=== PATIENT | male | born 1945 | race Caucasian/White ===

== ENCOUNTER 2019-03-31 00:31 | Inpatient (IN) | payer MEDICARE, MEDICAID ==
[~2019-03-31] VITALS: Ht 182.9 cm; Wt 75.7 kg
[~2019-03-31 00:31] MED LIST: ALLO100T56 PO; BUDE0.5A6 PO; GEMF600T PO; HYDR-3974 PO; LACT1CAP39 PO; LOSA50TA3 PO; MAG-55 PO; MAGN400O6 PO; MULT1CAP34 PO; OLAN20TA3 PO
--- NOTE | 2019-03-31 00:31 | NUR ---
TO BED 11 BIB EMS AND [employer] FROM [facility] C/O DEPRESSION, SI WITHOUT A CHEYANNE. PT AAOX4 NO ACUTE DISTRESS NOTED, RESP EVEN AND UNLABORED. PT CALM AND COOPERATIVE AT THIS TIME. PLACE PT ON HOSPITAL GOWN, ALL BELONGINGS REMOVED FROM ROOM. ER MD AT BEDSIDE TO EVAL PT WITH ORDERS RECEIVED. WILL CARRY OUT ORDERS.
--- NOTE | 2019-03-31 00:49 | NUR ---
A AND P MECHANIC AT BEDSIDE TO ASUNCION PECK.
[2019-03-31 01:00] LABS: APPEARANCE,URINE Clear (CLEAR); BILIRUBIN,URINE SMALL (NEGATIVE); BLOOD, URINE Negative Ery/uL (NEGATIVE); COLOR,URINE Yellow (YELLOW); KETONES,URINE Negative (NEGATIVE); LEUKOCYTE ESTERASE ,URINE Negative (NEGATIVE); NITRITE, URINE Negative (NEGATIVE); PH,URINE 6.5 (5.0-8.0); PROTEIN,URINE Negative (NEGATIVE); UGLUCOSE Negative (NEGATIVE)
[2019-03-31 01:01] LABS: BASOPHILS % (AUTO) 0.4 % (0.0-2.0); EOSINOPHILS % (AUTO) 1.3 % (0.0-6.0); HEMATOCRIT 34 % (39-51); HEMOGLOBIN 11.3 g/dL (13.5-17.5); LYMPHOCYTES # (AUTO) 2.2 /CMM (0.8-4.8); LYMPHOCYTES % (AUTO) 32.9 % (20.0-44.0); MEAN CORPUSCULAR HGB CONC 34 g/dl (31.0-36.0); MEAN CORPUSCULAR VOLUME 99 fL (80-96); MONOCYTES # (AUTO) 0.6 /CMM (0.1-1.30); MONOCYTES % (AUTO) 9.4 % (2.0-12.0); NEUTROPHILS # (AUTO) 3.8 /CMM (1.8-8.9); PLATELET COUNT (AUTO) 235 /CMM (150-450); RED BLOOD CELL COUNT(AUTO) 3.41 MIL/uL (4.5-6.0); WHITE BLOOD COUNT (AUTO) 6.8 K/uL (4.3-11.0)
[2019-03-31 01:02] LABS: BACTERIA,URINE None seen /HPF (None Seen); RBC,URINE 0-2 /HPF (0-2); SQUAMOUS EPITHELIAL CELL,UR Few /HPF (None Seen); WBC,URINE 0-2 /HPF (0-3)
[2019-03-31 01:09] LABS: CALCIUM, SERUM 8.7 mg/dL (8.5-10.1); CARBON DIOXIDE 26 mmol/L (21-32); CHLORIDE 105 mmol/L (98-107); CREATININE 0.9 mg/dL (0.6-1.3); GLUCOSE 116 mg/dL (74-106); POTASSIUM 3.9 mmol/L (3.5-5.1); SODIUM SERUM 143 mmol/L (136-145); UREA NITROGEN, BLOOD 30 mg/dL (7-18)
[2019-03-31 01:14] LABS: ALANINE AMINOTRANSFERASE 12 U/L (12-78); ALBUMIN 3.2 g/dL (3.4-5.0); ALCOHOL, BLOOD < 3 mg/dL (0-0); ALKALINE PHOSPHATASE 105 U/L (46-116); ASPARTATE AMINOTRANSFERASE 10 U/L (15-37); BILIRUBIN,DIRECT 0.1 mg/dL (0.0-0.2); BILIRUBIN,TOTAL 0.4 mg/dL (0.2-1.0); SALICYLATE 3.7 mg/dL (2.8-20.0); TOTAL PROTEIN, SERUM 6.8 g/dL (6.4-8.2)
[2019-03-31 01:16] LABS: ACETAMINOPHEN 0 ug/ml (10-30)
[2019-03-31] MEDS ORDERED: OLANZAPINE 5 MG TABLET PO ONE (02:00)
--- NOTE | 2019-03-31 02:01 | NUR ---
CALLED ART PAPER MACHINE BACKTENDER FOR EVALUATION. LEFT MESSAGE, WILL FOLLOW UP
[2019-03-31] MEDS ORDERED: OLANZAPINE 5 MG TABLET ONE (02:13)
--- NOTE | 2019-03-31 02:30 | NUR ---
ART CHIEF SOLUTION ARCHITECT EN ROUTE TO EVALUATE PT
--- NOTE | 2019-03-31 03:09 | NUR ---
ARNOLDO LEWIS MANAGER ANALYTICAL AT HER FOR PSYCH EVAL.
--- NOTE | 2019-03-31 04:09 | NUR ---
PT IN BED SLEEPING. NAD NOTED.
--- NOTE | 2019-03-31 07:02 | NUR ---
PT IN BED SLEEPING. EASILY ARROUSABLE
--- NOTE | 2019-03-31 09:11 | NUR ---
REPORT GIVEN STEPHANIE LYNN FOR PHONG
[2019-03-31] MEDS ORDERED: ONDA4TAB5 PO (09:45)
[2019-03-31] MEDS ORDERED: LORA0.5T PO (09:45)
[2019-03-31] MEDS ORDERED: TRAM50TA2 PO (09:45)
[2019-03-31] MEDS ORDERED: ACET-2605 PO (09:45)
[2019-03-31] MEDS ORDERED: MELA3TAB63 PO (09:45)
[2019-03-31] MEDS ORDERED: DIVA-76 PO (09:45)
[2019-03-31] MEDS ORDERED: TAMS-12 PO (09:45)
[2019-03-31] MEDS ORDERED: ESCI5TAB PO (09:45)
[2019-03-31] MEDS ORDERED: CYAN-51 PO (09:45)
[2019-03-31] MEDS ORDERED: BENZ0.5T43 PO (09:45)
[2019-03-31] MEDS ORDERED: LIDO5CRE18 TP (09:45)
[2019-03-31] MEDS ORDERED: FLUT1AER3 IH (09:45)
[2019-03-31] MEDS ORDERED: SODI126M BNOSTRILS (09:45)
[2019-03-31] MEDS ORDERED: IBUP-1955 PO (09:45)
[2019-03-31] MEDS ORDERED: BENA20TA9 PO (09:45)
[2019-03-31] MEDS ORDERED: ALLO100T56 PO (09:45)
[2019-03-31] MEDS ORDERED: QUET200T PO (09:45)
[2019-03-31] MEDS ORDERED: RISP0.253 PO (09:45)
--- NOTE | 2019-03-31 09:45 | NUR ---
SHEET METAL SHOP HELPER NOTE PATIENT CAME IN VIA GURNEY FROM ER, FOR GPS OVERFLOW ADMISSION. PATIENT AMBULATORY STEADY GAIT. NO COMPLAINS OF ANY PAIN NOR SOB AT THIS TIME. NO IV LINE ESTABLISHED DUE TO GPS STATUS, PER ER NURSE, PATIENT IS DANGER TO SELF. WAS EXPRESSING DEPRESSIVE FEELINGS AT [facility] AND WAS SENT HERE IN THE ER BY THE [employer]. PATIENT IS ALERT AND ORIENTED. SKIN ASSESSMENT DONE. PATIENT CONTINENT IN URINE, ASKED FOR A URINAL. PATIENT ORIENTED TO ROOM. CALL LIGHT WITHIN REACH. BED LOCKED AND IN LOWEST POSITION. SITTER AT BEDSIDE. WILL CONTINUE TO MONITOR CLOSELY
--- NOTE | 2019-03-31 11:40 | NUR ---
RN NOTE PER CN, PATIENT GOING TO GPS FOR ADMISSION. WILL CALL SHANE HERNANDEZ FOR REPORT
[2019-03-31] MEDS ORDERED: MAGNESIUM HYDROXIDE 30 ML UDC PO PRN (13:00)
[2019-03-31] MEDS ORDERED: ACETAMINOPHEN 325 MG TABLET PO PRN (13:00)
[2019-03-31] MEDS ORDERED: MAG HYDROX/AL HYDROX/SIMETH 30 ML UDC PO PRN (13:00)
[2019-03-31] MEDS ORDERED: BLOOD SUGAR DIAGNOSTIC 1 EACH STRIP IN ONE (13:00)
--- NOTE | 2019-03-31 15:00 | NUR ---
GPS/RN-NOTES ADMITTED 73 Y.O MALE PATIENT FROM [facility] ER. PATIENT ON 5150 FOR DTS. PATIENT IS UNDER THE CARE OF DR. FIGUEROA ( PSYCHIATRIST) MADE AWARE WITH ORDERS. DR WEBSTER ( OLIVE PACKER) ALSO MADE AWARE OF THE ADMISSION AND TO RECONCILE MEDICATIONS STATED HE WILL DO IT. UPON FACE TO FACE ASSESSMENT WITH THE PATIENT , PATIENT CALM,COOPERATIVE DURING THE ADMISSION PROCESS.HOLD WAS VERIFIED WITH THE PATIENT.FULL BODY ASSESSMENT,CONTRABAND AND MRSA DONE. PATIENT DENIES SI/HI AT THIS TIME. PATIENT WAS ORIENTED IN THE UNIT AND UNIT POLICIES. ALL ADMISSION PAPERS WAS SIGN BY THE PATIENT. PATIENT'S SISTER ALINE CARREON ([phone]) MADE AWARE OF THE ADMISSION.PATIENT'S RIGHT WAS REVIEWED AND THE POCKET WAS GIVEN TO THE PATIENT.
[2019-03-31] MEDS: LORAZEPAM 0.5 MG TABLET PO PRN (15:34)
--- NOTE | 2019-03-31 15:36 | NUR ---
RN NOTE: PATIENT C/O FEELING ANXIOUS. ADMINISTERED PRN ATIVAN 0.5MG TAB PO.
[2019-03-31 16:00] VITALS: BP 134/64
[2019-03-31] MEDS ORDERED: ONDANSETRON 4 MG TAB.RAPDIS PO PRN (16:00)
[2019-03-31] MEDS ORDERED: MISCELLANEOUS MED 1 EA EA PO PRN (16:00)
[2019-03-31] MEDS ORDERED: [UNRECOGNIZED DRUG - OTHER] BNOSTRILS PRN (16:00)
[2019-03-31] MEDS ORDERED: SODIUM CHLORIDE BNOSTRILS PRN (16:00)
[2019-03-31] MEDS ORDERED: IBUPROFEN 600 MG TABLET PO PRN (16:00)
--- NOTE | 2019-03-31 16:17 | NUR ---
Group Note 03/31/19: SW approached patient at bedside to invite them to attend today's support group at 2 pm in the activities room regarding mindfulness. Patient was in bed in be asleep and not easily rousable. SW will invite patient to next group session.
[2019-03-31] MEDS: TAMSULOSIN 0.4 MG CAP.SR.24H PO SCH (17:07)
[2019-03-31] MEDS: TRAMADOL HCL 50 MG TABLET PO SCH (18:19)
[2019-03-31 20:26] VITALS: BP 140/70
[2019-03-31] MEDS: TEMAZEPAM 7.5 MG CAPSULE PO PRN (21:18)
[2019-03-31] MEDS ORDERED: Medication Not On Formulary EA (Melatonin 6 MG) PO SCH (22:00)
[2019-03-31] MEDS ORDERED: OLANZAPINE 10 MG TABLET PO SCH (22:00)
[2019-04-01 07:27] LABS: ALBUMIN 2.9 g/dL (3.4-5.0); BILIRUBIN,TOTAL 0.5 mg/dL (0.2-1.0); CALCIUM, SERUM 8.5 mg/dL (8.5-10.1); CREATININE 0.8 mg/dL (0.6-1.3); POTASSIUM 3.9 mmol/L (3.5-5.1); TOTAL PROTEIN, SERUM 6.1 g/dL (6.4-8.2)
[2019-04-01 07:36] LABS: CHOLESTEROL 88 mg/dL (<200); HDL CHOLESTEROL 33 mg/dL (40-60); LDL 41 mg/dL (0-99); TRIGLYCERIDES 119 mg/dL (30-150)
[2019-04-01 08:00] VITALS: BP 139/83
[2019-04-01] MEDS: NICOTINE PATCH (14MG) 14 MG PATCH.TD24 TD SCH (08:20)
[2019-04-01] MEDS: BENAZEPRIL HCL 20 MG TABLET PO SCH (08:21)
[2019-04-01] MEDS: DIVALPROEX SODIUM 125 MG CAP.SPRINK PO SCH ×2 (08:21→17:22)
[2019-04-01] MEDS: CYANOCOBALAMIN 500 MCG TABLET PO SCH (08:21)
[2019-04-01] MEDS: ALLOPURINOL 100 MG TABLET PO SCH (08:21)
[2019-04-01] MEDS: TRAMADOL HCL 50 MG TABLET PO SCH ×3 (08:22→17:21)
[2019-04-01] MEDS: FLUTICASONE/VILANTEROL 1 EACH BLST.W.DEV IH SCH (08:23)
--- NOTE | 2019-04-01 09:59 | NUR ---
SW contacted [facility] Address: [address] [place] [address] and spoke with anna Youssef coordinator who stated once pt is stable he will be returning to their facility.
--- NOTE | 2019-04-01 11:40 | NUR ---
FAMILY MEETING: ELIAZAR met with pt and pts sister Ev [phone] at bedside. Per sister she wishes for pt to be discharged to a different SNF as she states pt is easily influenced by others at [facility]. Sister mentioned that pt lives in their assisted living and has access to leave whenever he wishes and states that pt often goes and hangs out with the homeless people who loiter near the facility and does drugs such as Methamphetamine and Cannabis with them. Pt confirmed that he smokes marijuana and pts UDS came back positive for cannabis. ELIAZAR informed her that she needed to consult with Psychiatrist as pt currently is on an Assisted Living Waiver and does not know if his waiver will be jeopardized if pt goes to a different SNF outside of [facility]. Sister understood and stated she would attempt to call the Assisted Living waiver program and inquire and will also speak to administration at [facility].
--- NOTE | 2019-04-01 13:11 | NUR ---
INITIAL DISCHARGE PLAN: Per sister Ev [phone] she wishes for pt to be discharged to a different SNF. However, pt is on an assisted living waiver at [facility] Address: [address] [place] [address] and is able to return once stable for discharge. ELIAZAR will help form a safe and proper discharge in collaboration with .
--- NOTE | 2019-04-01 15:13 | NUR ---
GROUP NOTE: SW encouraged pt to attend group on this present day to discuss "impaired reality-testing." Pt stated that he was cold and wanted to remain in bed where he was warm. SW provided intervention regarding pts symptoms of depression and suicidal ideation, pt minimized his suicidal ideation and attempt stating that he never attempted to walk into traffic and that the facility "had it all wrong." Pt also demonstrated symptoms of confusion as he did not remember meeting with SW and his sister earlier this morning. Pt acknowledged that he was feeling depressed and that he did not know why.
[2019-04-01 15:57] VITALS: BP 156/88
[2019-04-01 15:58] VITALS: BP 110/68
[2019-04-01 16:00] VITALS: BP 110/68
[2019-04-01] MEDS: LORAZEPAM 0.5 MG TABLET PO PRN (16:36)
--- NOTE | 2019-04-01 16:38 | NUR ---
GPS/RN-NOTES NOTED PATIENT WITH SUDDEN SCREAMING AND YELLING IN THE HALLWAY,RESPONDING TO INTERNAL STIMULI. STATED" PEOPLE ARE TALKING BAD ABOUT ME, CALLING ME NAMES". REDIRECTED AND REORIENTED PATIENT. OFFERED ATIVAN AND AGREED. ATIVAN 0.5MG P.O GIVEN PRN ORDER. WILL CONT. MONITORING FOR SAFETY AND BEHAVIOR.
[2019-04-01] MEDS: TAMSULOSIN 0.4 MG CAP.SR.24H PO SCH (17:22)
--- NOTE | 2019-04-01 17:40 | NUR ---
GPS/RN-NOTES PATIENT LAYING IN BED CALM,NO ACUTE DISTRESS NOTED.
--- NOTE | 2019-04-01 18:41 | NUR ---
PT. ALMOST TO ATTACK THE STAFF IN THE HALLWAY. PT. WAS AGGRESSIVE, ANGRY, SCREAMING AND PARANOID THINKING THAT STAFF ARE TALKING ABOUT HIM. PT. IS TEARFUL AND WANTING TO BE DISCHARGE. PT. REDIRECTED TO HIS ROOM AND NOTIFIED DR. FIGUEROA WITH AN ORDER OF ZYPREXA 10 MG IM AND TO HOLD HS MED.
--- NOTE | 2019-04-01 18:52 | NUR ---
GPS/RN-NOTES NOTED PATIENT PUSHING THE WOW (COMPUTER ) TO THE MRI TECH STAFF IN THE HALLWAY. PATIENT SCREAMING AND YELLING " LET ME OUT THIS PLACE". REDIRECTED PATIENT, DR. FIGUEROA WAS MADE AWARE BY THE CHARGE NURSE WITH ORDERS. Addendum: 04/01/19 at 1906 by DAVID SHEETS RN IN ADDITION TO MY NOTES ABOVE. DR. FIGUEROA T.O ORDER TO HOLD HS ZYPREXA DOSE. WILL ENDORSE TO INCOMING NURSE TO CONTINUE MONITORING FOR SAFETY AND BEHAVIOR.
[2019-04-01] MEDS ORDERED: OLANZAPINE 10 MG VIAL IM ONE (19:00)
[2019-04-01 19:46] VITALS: BP 126/63
[2019-04-01] MEDS ORDERED: OLANZAPINE 10 MG TABLET PO SCH (22:00)
[2019-04-01] MEDS: TEMAZEPAM 7.5 MG CAPSULE PO PRN (22:11)
--- NOTE | 2019-04-02 08:52 | NUR ---
DR. FIGUEROA CALLED AND GAVE AN ORDER ABOUT ZYPREXA PO.
[2019-04-02] MEDS: BENAZEPRIL HCL 20 MG TABLET PO SCH (09:00)
[2019-04-02] MEDS: TRAMADOL HCL 50 MG TABLET PO SCH ×3 (09:00→16:34)
[2019-04-02] MEDS: ALLOPURINOL 100 MG TABLET PO SCH (09:01)
[2019-04-02] MEDS: DIVALPROEX SODIUM 125 MG CAP.SPRINK PO SCH ×2 (09:01→16:33)
[2019-04-02] MEDS: CYANOCOBALAMIN 500 MCG TABLET PO SCH (09:01)
[2019-04-02] MEDS: NICOTINE PATCH (14MG) 14 MG PATCH.TD24 TD SCH (09:03)
[2019-04-02] MEDS: OLANZAPINE 5 MG TABLET PO SCH ×2 (09:03→12:20)
[2019-04-02] MEDS: FLUTICASONE/VILANTEROL 1 EACH BLST.W.DEV IH SCH (09:08)
[2019-04-02] MEDS: LORAZEPAM 0.5 MG TABLET PO PRN (10:49)
--- NOTE | 2019-04-02 10:50 | NUR ---
GPS/RN-NOTES NOTED PATIENT VERY ANXIOUS,ANGRY ,PARANOID STATING "PEOPLE ARE PICKING ON ON ME,THEY ARE CALLING ME NAMES". ATIVAN 1MG P.O GIVEN PRN ORDER. WILL CONT. MONITORING FOR SAFETY AND BEHAVIOR.
--- NOTE | 2019-04-02 11:45 | NUR ---
GPS/RN-NOTES PATIENT IN THE DAY ROOM WATCHING TV,CALM NO ACUTE DISTRESS NOTED.
[2019-04-02] MEDS ORDERED: FIXODENT 1 EA TUBE MM PRN (13:30)
[2019-04-02 16:00] VITALS: BP 118/57
[2019-04-02] MEDS: TAMSULOSIN 0.4 MG CAP.SR.24H PO SCH (18:07)
--- NOTE | 2019-04-02 19:30 | NUR ---
GPS RN NOTE, RECEIVED PATIENT AWAKE AND IN BED, NO S/S OR COMPLAINTS OF PAIN AT THIS TIME. PATIENT IS DISPLAYING NO S/S OF APPARENT DISTRESS AT THIS TIME. PATIENT BREATHING IS UNLABORED WITH EQUAL RISE AND FALL OF THE CHEST. PATIENT IS ALERT AND ORIENTED X 1-2 ON ROOM AIR WITH A SPO2 98 %. PATIENT IS COMPLIANT WITH MEDICATION, DISORGANIZED, DEPRESSED, ANXIOUS AT TIMES, AND COOPERATIVE. PATIENT DENIES SUICIDE IDEATIONS AND HOMICIDAL IDEATIONS AT THIS TIME. PATIENT ASSISTED WITH TURNING AND REPOSITIONING Q2 HR AND PRN FOR COMFORT AND CIRCULATION. PATIENT HAS NO NEEDS AT THIS TIME. PATIENT EDUCATED ON THE USE OF THE CALL LOBO. PATIENT BED SIDE RAILS UP X 2 FOR SAFETY, BED IS LOCKED AND LOW. WILL CONTINUE TO MONITOR Q15 MIN WITH THE HELP OF STAFF TO MAINTAIN SAFETY.
[2019-04-02 19:44] VITALS: BP 128/83
[2019-04-02] MEDS: OLANZAPINE 10 MG TABLET PO SCH (20:38)
[2019-04-03] MEDS: TEMAZEPAM 7.5 MG CAPSULE PO PRN (00:10)
--- NOTE | 2019-04-03 00:10 | NUR ---
GPS RN NOTE, PATIENT HAS A COMPLAINT OF NOT BEING ABLE TO SLEEP AND IS REQUESTING RESTORIL AT THIS TIME. PATIENT VITAL SIGNS ARE STABLE. GAVE RESTORIL 7.5MG PO HS ORDERED. WILL REASSESS FOR INSOMNIA AND I WILL CONTINUE TO MONITOR THIS PATIENT.
[2019-04-03 08:00] VITALS: BP 115/52
[2019-04-03] MEDS: ALLOPURINOL 100 MG TABLET PO SCH (08:41)
[2019-04-03] MEDS: CYANOCOBALAMIN 500 MCG TABLET PO SCH (08:41)
[2019-04-03] MEDS: FLUTICASONE/VILANTEROL 1 EACH BLST.W.DEV IH SCH (08:41)
[2019-04-03] MEDS: OLANZAPINE 5 MG TABLET PO SCH ×2 (08:41→12:25)
[2019-04-03] MEDS: TRAMADOL HCL 50 MG TABLET PO SCH ×3 (08:42→16:00)
[2019-04-03] MEDS: BENAZEPRIL HCL 20 MG TABLET PO SCH (08:42)
[2019-04-03] MEDS: DIVALPROEX SODIUM 125 MG CAP.SPRINK PO SCH ×2 (08:42→16:00)
[2019-04-03] MEDS: NICOTINE PATCH (14MG) 14 MG PATCH.TD24 TD SCH (08:43)
[2019-04-03 15:54] VITALS: BP 144/66
[2019-04-03] MEDS: TAMSULOSIN 0.4 MG CAP.SR.24H PO SCH (17:03)
[2019-04-03 19:37] VITALS: BP 108/57
[2019-04-03] MEDS: OLANZAPINE 10 MG TABLET PO SCH (20:25)
--- NOTE | 2019-04-03 20:30 | NUR ---
Patient is depressed with sad facial expressions. Somewhat isolated to self. However, interacted well during assessment. Denies SI/AVH. Compliant with medication. Will continue to monitor behavior and medication effectiveness.
[2019-04-04 08:00] VITALS: BP 103/58
[2019-04-04] MEDS: NICOTINE PATCH (14MG) 14 MG PATCH.TD24 TD SCH (08:48)
[2019-04-04] MEDS: FLUTICASONE/VILANTEROL 1 EACH BLST.W.DEV IH SCH (08:49)
[2019-04-04] MEDS: OLANZAPINE 5 MG TABLET PO SCH ×2 (08:50→12:29)
[2019-04-04] MEDS: TRAMADOL HCL 50 MG TABLET PO SCH ×3 (08:50→17:05)
[2019-04-04] MEDS: CYANOCOBALAMIN 500 MCG TABLET PO SCH (08:50)
[2019-04-04] MEDS: BENAZEPRIL HCL 20 MG TABLET PO SCH (08:51)
[2019-04-04] MEDS: DIVALPROEX SODIUM 125 MG CAP.SPRINK PO SCH ×3 (08:52→17:04)
[2019-04-04] MEDS: ALLOPURINOL 100 MG TABLET PO SCH (08:52)
[2019-04-04 16:00] VITALS: BP 144/82
[2019-04-04] MEDS: TAMSULOSIN 0.4 MG CAP.SR.24H PO SCH (18:04)
[2019-04-04 19:59] VITALS: BP 153/66
[2019-04-04] MEDS: OLANZAPINE 10 MG TABLET PO SCH (20:35)
[2019-04-04] MEDS: TEMAZEPAM 7.5 MG CAPSULE PO PRN (21:53)
[2019-04-05 08:00] VITALS: BP 151/60
--- NOTE | 2019-04-05 08:26 | NUR ---
ELIAZAR contacted pts sister Ev [phone] and left a voicemail informing her pt will be discharged back to [facility] tomorrow Thursday04/06/19.
[2019-04-05] MEDS: OLANZAPINE 5 MG TABLET PO SCH ×2 (08:35→12:21)
[2019-04-05] MEDS: FLUTICASONE/VILANTEROL 1 EACH BLST.W.DEV IH SCH (08:35)
[2019-04-05] MEDS: NICOTINE PATCH (14MG) 14 MG PATCH.TD24 TD SCH (08:35)
[2019-04-05] MEDS: ALLOPURINOL 100 MG TABLET PO SCH (08:35)
[2019-04-05] MEDS: BENAZEPRIL HCL 20 MG TABLET PO SCH (08:35)
[2019-04-05] MEDS: TRAMADOL HCL 50 MG TABLET PO SCH ×3 (08:37→17:03)
[2019-04-05] MEDS: DIVALPROEX SODIUM 125 MG CAP.SPRINK PO SCH ×3 (08:38→17:08)
[2019-04-05] MEDS: CYANOCOBALAMIN 500 MCG TABLET PO SCH (09:39)
[2019-04-05 16:00] VITALS: BP 136/62
[2019-04-05] MEDS: TAMSULOSIN 0.4 MG CAP.SR.24H PO SCH (17:03)
[2019-04-05 20:12] VITALS: BP 144/67
[2019-04-05] MEDS: OLANZAPINE 10 MG TABLET PO SCH (20:51)
[2019-04-05] MEDS: TEMAZEPAM 7.5 MG CAPSULE PO PRN (21:25)
[2019-04-06] MEDS: LORAZEPAM 0.5 MG TABLET PO PRN ×2 (00:38→12:09)
[2019-04-06 07:03] LABS: BASOPHILS % (AUTO) 0.4 % (0.0-2.0); EOSINOPHILS % (AUTO) 1.8 % (0.0-6.0); HEMATOCRIT 35 % (39-51); HEMOGLOBIN 11.6 g/dL (13.5-17.5); LYMPHOCYTES # (AUTO) 2.6 /CMM (0.8-4.8); MEAN CORPUSCULAR HGB CONC 33 g/dl (31.0-36.0); MEAN CORPUSCULAR VOLUME 100 fL (80-96); MONOCYTES # (AUTO) 0.7 /CMM (0.1-1.30); MONOCYTES % (AUTO) 9.7 % (2.0-12.0); NEUTROPHILS # (AUTO) 3.5 /CMM (1.8-8.9); NEUTROPHILS % (AUTO) 51.1 % (43.0-81.0); PLATELET COUNT (AUTO) 249 /CMM (150-450); RED BLOOD CELL COUNT(AUTO) 3.48 MIL/uL (4.5-6.0); WHITE BLOOD COUNT (AUTO) 6.9 K/uL (4.3-11.0)
[2019-04-06 08:00] VITALS: BP 146/58
[2019-04-06 08:12] LABS: ALBUMIN 3.2 g/dL (3.4-5.0); BILIRUBIN,TOTAL 0.6 mg/dL (0.2-1.0); CREATININE 0.9 mg/dL (0.6-1.3); POTASSIUM 4.7 mmol/L (3.5-5.1)
[2019-04-06 08:54] VITALS: BP 146/58
[2019-04-06] MEDS: TRAMADOL HCL 50 MG TABLET PO SCH ×2 (08:54→12:10)
[2019-04-06] MEDS: NICOTINE PATCH (14MG) 14 MG PATCH.TD24 TD SCH (08:54)
[2019-04-06] MEDS: ALLOPURINOL 100 MG TABLET PO SCH (08:54)
[2019-04-06] MEDS: BENAZEPRIL HCL 20 MG TABLET PO SCH (08:54)
[2019-04-06] MEDS: OLANZAPINE 5 MG TABLET PO SCH ×2 (08:54→12:10)
[2019-04-06] MEDS: CYANOCOBALAMIN 500 MCG TABLET PO SCH (08:54)
[2019-04-06] MEDS: DIVALPROEX SODIUM 125 MG CAP.SPRINK PO SCH ×2 (08:55→12:09)
[2019-04-06] MEDS: FLUTICASONE/VILANTEROL 1 EACH BLST.W.DEV IH SCH (08:57)
--- NOTE | 2019-04-06 10:53 | NUR ---
DISCHARGE NOTE: Pt will be discharged at 12:30pm via [facility] to [facility] ([facility]) Address: [address] [place] [address] Room 52B. Pts sister Ev [phone] has been notified. Pts mood is euthymic with congruent affect. Pt denied visual/auditory hallucinations and denied suicidal/homicidal ideation. Pt will address his substance use with Psychiatrist: Dr. Jerson Griffin [address] [address] [phone] and will be under the care of Second Mate: Dr. Mayela May Address: [address] [place] [address] Phone: . For smoking cessation, patient was referred to the [employer] and [employer] [id number]. Pt will also participate in a telephone meeting with [employer] [phone] on April at 8:00am. The multidisciplinary exit care form was done, printed, signed, and given to the patient.
--- NOTE | 2019-04-06 12:12 | NUR ---
RN NOTE: PATIENT C/O FEELING ANXIOUS. PRN ATIVAN GIVEN.
--- NOTE | 2019-04-06 16:11 | NUR ---
LINK TRAINER TEACHER NOTE: PATIENT IS A 73 Y/O MALE DISCHARGED TO [facility] ([facility]) [address] [place] [address] [facility] [place] [address] . PATIENTS SISTER ALINE CARREON MADE AWARE OF DISCHARGE.PATIENT IS IN STABLE CONDITION. VSS. NO ACUTE DISTRESS NOTED. NO COMPLAINTS. COMPLIANT WITH MEDICATION MANAGEMENT. COOPERATIVE WITH PLAN OF CARE. PSYCHIATRIC TREATMENT PLANS MET. MEDICAL TREATMENT PLANS DEFERRED FOR CONTINUAL MONITORING. DENIES SI/HI VAH AT THE TIME OF DISCHARGE. WOUND PICTURES TAKEN AND DOCUMENTED IN CHART. EDUCATED PATIENT ABOUT AFTERCARE WITH COPY PROVIDED. RETURNED PERSONAL BELONGINGS TO PATIENT. MEDICATIONS RECONCILED WITH DR. MOSQUEDA AND DR. FIGUEROA ALONG WITH PSYCHIATRIC DISCHARGE ORDERS. DISCHARGE PAPERWORK SIGNED. FOR FOLLOW UP WITH PSYCHIATRIST DR. CANDELARIO [place] [facility] [address]. [facility]. [address] [place] [address] [phone] RITA ELLIS [address] [facility] [place] [address] WITHIN 1 WEEK. PATIENT LEFT THE [facility] GPS AT 1327 VIA [employer].
--- NOTE | 2019-04-20 09:33 | NUR ---
15 DAY SUBSTANCE ABUSE: Pt is excluded due to D/C to SNF.
== END 2019-04-06 13:27 | DRG 885 ==
LOC: ER 00:31 → GPSOV1 09:40 → GPS 12:13
PROVIDERS: ADMIT Psychiatry & Neurology Psychosomatic Medicine; ATTEND Family Medicine
DX: F20.9 Schizophrenia, unspecified (principal); R45.851 Suicidal ideations; F29 Unspecified psychosis not due to a substance or known physiological condition; E78.5 Hyperlipidemia, unspecified; F32.9 Major depressive disorder, single episode, unspecified; J44.9 Chronic obstructive pulmonary disease, unspecified; I10 Essential (primary) hypertension; Z86.12 Personal history of poliomyelitis; R27.0 Ataxia, unspecified; F12.10 Cannabis abuse, uncomplicated; G62.9 Polyneuropathy, unspecified; R79.89 Other specified abnormal findings of blood chemistry; M10.9 Gout, unspecified
CPT/HCPCS: 36415; 80048-TC; 80053-TC; 80061-TC; 80076-TC; 80164-TC; 80305; 81000-TC; 82962-TC; 85025-TC; 87081-TC; G0480; J3490

== ENCOUNTER 2021-06-20 20:10 | Emergency (ER) | payer MEDICARE, OTHER ==
[~2021-06-20] VITALS: Ht 182.9 cm; Wt 86.2 kg
[~2021-06-20 20:10] MED LIST changes: +ACET-2605 PO; +BENA20TA9 PO; +BENZ0.5T43 PO; -BUDE0.5A6 PO; +CYAN-51 PO; +DIVA-76 PO; +ESCI5TAB PO; +FLUT1AER3 IH; -GEMF600T PO; -HYDR-3974 PO; +IBUP-1955 PO; -LACT1CAP39 PO; +LIDO5CRE18 TP; +LORA0.5T PO; -LOSA50TA3 PO; -MAG-55 PO; -MAGN400O6 PO; +MELA3TAB41 PO; -MULT1CAP34 PO; -OLAN20TA3 PO; +ONDA4TAB5 PO; +QUET200T PO; +RISP0.253 PO; +SODI126M BNOSTRILS; +TAMS-12 PO; +TRAM50TA2 PO
--- NOTE | 2021-06-20 20:20 | NUR ---
BIBRA FROM THE STREET TO ER BED 14. AAOX4. NOT IN RESP DISTRESS, BREATHING EVEN AND UNLABORED. ANYGT IN FOR L SIDE CP NON RADIATING PRESSURE. DENIES AND NVD. PT RECEIVED 1 SPRAY NITRO AND FULL DOSE ASA ON FIELD BY PARAMEDICS. WAS AT THE BEDSIDE FOR EVAL. EKG DONE. PT ON MONITOR.
[2021-06-20 21:51] LABS: BASOPHILS % (AUTO) 0.4 % (0.0-2.0); EOSINOPHILS % (AUTO) 1.1 % (0.0-6.0); HEMATOCRIT 37 % (39-51); HEMOGLOBIN 12.4 g/dL (13.5-17.5); LYMPHOCYTES # (AUTO) 1.7 K/uL (0.8-4.8); LYMPHOCYTES % (AUTO) 21.7 % (20.0-44.0); MEAN CORPUSCULAR HGB CONC 34 g/dl (31.0-36.0); MEAN CORPUSCULAR VOLUME 97 fL (80-96); MONOCYTES # (AUTO) 0.6 K/uL (0.1-1.30); MONOCYTES % (AUTO) 8.5 % (2.0-12.0); NEUTROPHILS # (AUTO) 5.2 K/uL (1.8-8.9); NEUTROPHILS % (AUTO) 68.3 % (43.0-81.0); PLATELET COUNT (AUTO) 252 K/uL (150-450); RED BLOOD CELL COUNT(AUTO) 3.82 MIL/uL (4.5-6.0); WHITE BLOOD COUNT (AUTO) 7.7 K/uL (4.3-11.0)
[2021-06-20 22:00] LABS: CALCIUM, SERUM 8.1 mg/dL (8.5-10.1); CARBON DIOXIDE 30 mmol/L (21-32); CHLORIDE 101 mmol/L (98-107); CREATININE 1.2 mg/dL (0.6-1.3); GLUCOSE 163 mg/dL (74-106); POTASSIUM 3.8 mmol/L (3.5-5.1); SODIUM SERUM 138 mmol/L (136-145); UREA NITROGEN, BLOOD 21 mg/dL (7-18)
--- NOTE | 2021-06-20 22:22 | NUR ---
[facility] ETA 5974
--- NOTE | 2021-06-20 23:33 | NUR ---
MALORIE AT [facility] NOTIFIED THAT PT IS COMING BACK AND MEDICALLY CLEARED.
--- NOTE | 2021-06-20 23:34 | NUR ---
[facility] AT BEDSIDE FOR PT TRANSPORT BACK TO HIS FACILITY. REPORT GIVEN TO EMT. PT IS IN STABLE CONDITION FOR TRANSPORT. PT AMBULATED TO [facility]
[2021-06-20 23:39] VITALS: BP 136/78
== END 2021-06-20 23:40 | disposition home or self-care (01) ==
LOC: ER 20:13
DX: R07.89 Other chest pain (principal); I10 Essential (primary) hypertension; J45.909 Unspecified asthma, uncomplicated; E78.00 Pure hypercholesterolemia, unspecified; Z79.899 Other long term (current) drug therapy
CPT/HCPCS: 36415; 71045-TC; 80048-TC; 84484-TC; 85025-TC

== ENCOUNTER 2021-10-22 01:13 | Emergency (ER) | payer MEDICARE, OTHER ==
[~2021-10-22] VITALS: Ht 172.7 cm; Wt 87.1 kg
--- NOTE | 2021-10-22 01:25 | NUR ---
PT BIBRA88 PT FOUND AT [facility]. PT A/OX2/3 WITH CONFUSION. TOLERATING R/A WELL WITH NO SOB.
--- NOTE | 2021-10-22 01:46 | NUR ---
PT RENETTA 88 FROM [facility], PT FOUND OUTSIDE IN N OUT; SPEAKING WITH SECURITY, PT THEN COMPLAINING OF BODY; PT A/OX3; NO SOB NOTED; TOLERATING ROOM AIR WELL, SATTING 98%; VSS; KATARZYNA AT BEDSIDE WITH PT; SNF CALLED, PER SNF, THEY DO NOT HAVE THIS PT. CALLED ALINE (SISTER), DID NOT ANSWER; WILL TRY ANOTHER FAMILY MEMBER. PT HOOKED ON MONITOR AND POX. Addendum: 10/22/21 at 0152 by ALFONZO A/OX2-3 WITH PERIODS OF CONFUSION; BROUGHT TO ER BED 14
--- NOTE | 2021-10-22 05:42 | NUR ---
ATTEMPTED TO CONTACT FAMILY MEMBERS MULTIPLE TIMES THROUGHOUT SHIFT, STILL NO ANSWER; VOICEMAIL LEFT FOR ALINE (SISTER) [phone]
--- NOTE | 2021-10-22 06:09 | NUR ---
SISTER CALLED BACK, REPORTED PT IS FROM [facility] ON [address], [place]. SISTER PROVIDED NUMBER; DR. COLÓN CALLING FACILITY
--- NOTE | 2021-10-22 06:15 | NUR ---
FACILITY DID NOT ANSWER, DR. COLÓN LEFT VOICEMAIL WITH FACILITY TO CALL BACK REGARDING PT
--- NOTE | 2021-10-22 09:39 | NUR ---
report given to emt for pt transfer back to [facility].
[2021-10-22 09:45] VITALS: BP 142/86
== END 2021-10-22 09:46 | disposition home or self-care (01) ==
LOC: ER 01:16
DX: Z71.1 Person with feared health complaint in whom no diagnosis is made (principal); I10 Essential (primary) hypertension; J44.9 Chronic obstructive pulmonary disease, unspecified; F20.9 Schizophrenia, unspecified; E78.00 Pure hypercholesterolemia, unspecified; Z86.12 Personal history of poliomyelitis; Z86.69 Personal history of other diseases of the nervous system and sense organs; Z86.79 Personal history of other diseases of the circulatory system; Z79.899 Other long term (current) drug therapy

== ENCOUNTER 2021-11-05 08:57 | Emergency (ER) | payer MEDICARE, OTHER ==
[~2021-11-05] VITALS: Ht 172.7 cm; Wt 86.6 kg
[2021-11-05 09:44] LABS: BASOPHILS % (AUTO) 0.8 % (0.0-2.0); EOSINOPHILS % (AUTO) 1.6 % (0.0-6.0); HEMATOCRIT 32 % (39-51); HEMOGLOBIN 10.8 g/dL (13.5-17.5); LYMPHOCYTES # (AUTO) 1.4 K/uL (0.8-4.8); LYMPHOCYTES % (AUTO) 25.1 % (20.0-44.0); MEAN CORPUSCULAR HGB CONC 34 g/dl (31.0-36.0); MEAN CORPUSCULAR VOLUME 96 fL (80-96); MONOCYTES # (AUTO) 0.6 K/uL (0.1-1.30); MONOCYTES % (AUTO) 10.9 % (2.0-12.0); NEUTROPHILS # (AUTO) 3.4 K/uL (1.8-8.9); NEUTROPHILS % (AUTO) 61.6 % (43.0-81.0); PLATELET COUNT (AUTO) 239 K/uL (150-450); RED BLOOD CELL COUNT(AUTO) 3.33 MIL/uL (4.5-6.0); WHITE BLOOD COUNT (AUTO) 5.5 K/uL (4.3-11.0)
[2021-11-05 09:47] LABS: CALCIUM, SERUM 8.3 mg/dL (8.5-10.1); CARBON DIOXIDE 30 mmol/L (21-32); CHLORIDE 103 mmol/L (98-107); GLUCOSE 91 mg/dL (74-106); POTASSIUM 4.4 mmol/L (3.5-5.1); SODIUM SERUM 138 mmol/L (136-145); UREA NITROGEN, BLOOD 14 mg/dL (7-18)
[2021-11-05 09:53] LABS: ALANINE AMINOTRANSFERASE 15 U/L (12-78); ALBUMIN 2.7 g/dL (3.4-5.0); ALCOHOL, BLOOD < 3 mg/dL (0-0); ALKALINE PHOSPHATASE 106 U/L (46-116); ASPARTATE AMINOTRANSFERASE 11 U/L (15-37); BILIRUBIN,DIRECT 0.1 mg/dL (0.0-0.2); BILIRUBIN,TOTAL 0.4 mg/dL (0.2-1.0); TOTAL PROTEIN, SERUM 6.4 g/dL (6.4-8.2)
[2021-11-05 10:06] LABS: ACETAMINOPHEN 0 ug/ml (10-30)
[2021-11-05] MEDS ORDERED: LISI20TA31 PO (10:26)
[2021-11-05] MEDS ORDERED: PALI156D IM (10:26)
[2021-11-05] MEDS ORDERED: ARIP5TAB59 PO (10:26)
[2021-11-05] MEDS ORDERED: HALO5TAB8 PO (10:26)
[2021-11-05] MEDS ORDERED: SENN-261 PO (10:26)
[2021-11-05 11:01] LABS: BILIRUBIN,URINE NEGATIVE (NEGATIVE); COLOR,URINE YELLOW (YELLOW); LEUKOCYTE ESTERASE ,URINE NEGATIVE (NEGATIVE); NITRITE, URINE NEGATIVE (NEGATIVE); PH,URINE 7.5 (5.0-8.0); PROTEIN,URINE NEGATIVE (NEGATIVE); UGLUCOSE NEGATIVE (NEGATIVE)
[2021-11-05 13:01] VITALS: BP 133/84
== END 2021-11-05 14:38 ==
LOC: ER 09:00
DX: F20.9 Schizophrenia, unspecified (principal); F03.90 Unspecified dementia, unspecified severity, without behavioral disturbance, psychotic disturbance, mood disturbance, and anxiety; Z20.822 Contact with and (suspected) exposure to COVID-19; J44.9 Chronic obstructive pulmonary disease, unspecified; E78.5 Hyperlipidemia, unspecified; G62.9 Polyneuropathy, unspecified; Z86.12 Personal history of poliomyelitis; I10 Essential (primary) hypertension; R27.0 Ataxia, unspecified; Z79.899 Other long term (current) drug therapy
CPT/HCPCS: 36415; 80048-TC; 80076-TC; 85025-TC; C9803; G0480

== ENCOUNTER 2021-11-17 22:29 | Inpatient (IN) | payer MEDICARE, OTHER ==
[~2021-11-17] VITALS: Ht 182.9 cm; Wt 81.6 kg
[~2021-11-17 22:29] MED LIST changes: -ACET-2605 PO; +ARIP5TAB59 PO; -BENA20TA9 PO; -FLUT1AER3 IH; +HALO5TAB8 PO; -IBUP-1955 PO; -LIDO5CRE18 TP; +LISI20TA31 PO; -MELA3TAB41 PO; -ONDA4TAB5 PO; +PALI156D IM; -QUET200T PO; -RISP0.253 PO; +SENN-261 PO; -SODI126M BNOSTRILS; -TRAM50TA2 PO
--- NOTE | 2021-11-17 23:05 | NUR ---
TO ER BED 11. BIBRA 860 FOR PATIENT ELOPED FROM [facility]. PT STATES HES ANXIOUS AND IS UNABLE TO SLEEP. CONNECTED TO MONITOR. AWAITING MD ROLAND
[2021-11-17] MEDS ORDERED: OLANZAPINE 5 MG TABLET ONE (23:10)
[2021-11-17] MEDS ORDERED: OLANZAPINE 10 MG VIAL IM ONE ×2 (23:12→23:30)
--- NOTE | 2021-11-17 23:15 | NUR ---
LAB AT BEDSIDE
--- NOTE | 2021-11-17 23:24 | NUR ---
PT UNABLE TO PROVIDE URINE SAMPLE AT THIS TIME
[2021-11-17 23:30] LABS: BASOPHILS % (AUTO) 0.4 % (0.0-2.0); EOSINOPHILS % (AUTO) 0.9 % (0.0-6.0); HEMATOCRIT 36 % (39-51); HEMOGLOBIN 11.9 g/dL (13.5-17.5); LYMPHOCYTES % (AUTO) 25.4 % (20.0-44.0); MEAN CORPUSCULAR HGB CONC 33 g/dl (31.0-36.0); MEAN CORPUSCULAR VOLUME 97 fL (80-96); MONOCYTES # (AUTO) 0.7 K/uL (0.1-1.30); MONOCYTES % (AUTO) 8.5 % (2.0-12.0); NEUTROPHILS % (AUTO) 64.8 % (43.0-81.0); PLATELET COUNT (AUTO) 224 K/uL (150-450); RED BLOOD CELL COUNT(AUTO) 3.69 MIL/uL (4.5-6.0); WHITE BLOOD COUNT (AUTO) 7.7 K/uL (4.3-11.0)
[2021-11-17 23:51] LABS: CALCIUM, SERUM 8.5 mg/dL (8.5-10.1); CARBON DIOXIDE 32 mmol/L (21-32); CHLORIDE 101 mmol/L (98-107); CREATININE 1.3 mg/dL (0.6-1.3); GLUCOSE 110 mg/dL (74-106); POTASSIUM 4.7 mmol/L (3.5-5.1); SODIUM SERUM 140 mmol/L (136-145); UREA NITROGEN, BLOOD 27 mg/dL (7-18)
[2021-11-17 23:57] LABS: ALANINE AMINOTRANSFERASE 14 U/L (12-78); ALKALINE PHOSPHATASE 110 U/L (46-116); ASPARTATE AMINOTRANSFERASE 7 U/L (15-37); BILIRUBIN,DIRECT 0.2 mg/dL (0.0-0.2); BILIRUBIN,TOTAL 0.7 mg/dL (0.2-1.0)
[2021-11-17 23:58] LABS: ACETAMINOPHEN < 2 ug/ml (10-30); ALCOHOL, BLOOD < 3 mg/dL (0-0)
--- NOTE | 2021-11-18 00:01 | NUR ---
URINE SAMPLE COLLECTED
--- NOTE | 2021-11-18 00:01 | NUR ---
COVID ANTIGEN SWAB COLLECTED AND SENT TO LAB
[2021-11-18 00:30] LABS: BILIRUBIN,URINE NEGATIVE (NEGATIVE); COLOR,URINE YELLOW (YELLOW); LEUKOCYTE ESTERASE ,URINE NEGATIVE (NEGATIVE); NITRITE, URINE NEGATIVE (NEGATIVE); PROTEIN,URINE NEGATIVE (NEGATIVE); UGLUCOSE NEGATIVE (NEGATIVE); UROBILINOGEN,URINE 0.2 EU/dL (0.2)
--- NOTE | 2021-11-18 00:50 | NUR ---
CATIE PAGED FOR CRISIS EVAL.
--- NOTE | 2021-11-18 02:56 | NUR ---
GPS 211-A
--- NOTE | 2021-11-18 04:04 | NUR ---
REPORT GIVEN TO FAA RN FOR PHONG
[2021-11-18 04:20] VITALS: BP 108/61
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
[2021-11-18] MEDS ORDERED: ACETAMINOPHEN 325 MG TABLET PO PRN (05:00)
[2021-11-18] MEDS ORDERED: BLOOD SUGAR DIAGNOSTIC 1 EACH STRIP IN ONE (05:00)
[2021-11-18] MEDS ORDERED: MAGNESIUM HYDROXIDE 30 ML UDC PO PRN (05:00)
[2021-11-18] MEDS ORDERED: MAG HYDROX/AL HYDROX/SIMETH 30 ML UDC PO PRN (05:00)
[2021-11-18 05:34] VITALS: BP 108/61
--- NOTE | 2021-11-18 06:56 | NUR ---
GPS RN NOTES: PATIENT SISTER ALINE CARREON ([phone]) MADE AWARE OF PATIENT ADMISSION AT 0655.
--- NOTE | 2021-11-18 07:30 | NUR ---
PT RECEIVED RESTING COMFORTABLY IN BED. NO S/S OR C/O PAIN OR DISTRESS NOTED. SIDE RAILS UP X2. WILL CONTINUE PLAN OF CARE.
[2021-11-18 08:00] VITALS: BP 153/76
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
--- NOTE | 2021-11-18 11:35 | NUR ---
Family Contact: ELIAZAR called the pt.'s sister, Ev Wells [phone] ans left a voicemail with SW call back number. SW will remain available to speak to family and gather collateral information.
--- NOTE | 2021-11-18 11:37 | NUR ---
Initial Discharge Plan: The pt. currently comes from [facility][[id number] [facility] [address]; [phone]]. ELIAZAR called and spoke to admissions dept. who stated that the pt. can return when stable. Pt. stated that he does not want to return as they "doctors want to kill me". ELIAZAR left pt.'s sister, Ev [phone] a voicemail. ELIAZAR will continue to collaborate with psychiatrist, patient and family to complete a safe & appropriate discharge plan. Addendum: 11/18/21 at 1200 by SOHAIL PEREA Correct Address: [facility][[address] [facility] [address]; [phone]]
--- NOTE | 2021-11-18 11:43 | NUR ---
Substance Abuse Intervention: SW completed brief substance abuse intervention with pt. Pt. only admits to using Cannabis and stated he has no plan to change this habit. SW offered to refer pt. to outpatient rehab and pt. refused. SW offered pt. addiction resources and pt. refused. Pt. signed substance abuse intervention paperwork.
[2021-11-18 16:00] VITALS: BP 143/66
[2021-11-18] MEDS: TAMSULOSIN 0.4 MG CAP.SR.24H PO SCH (17:44)
[2021-11-18 20:50] VITALS: BP 131/59
[2021-11-18] MEDS: SENNOSIDES 8.6 MG TABLET PO SCH (21:31)
[2021-11-18] MEDS: OLANZAPINE 5 MG TABLET PO SCH (22:58)
[2021-11-19 07:42] LABS: ALANINE AMINOTRANSFERASE 14 U/L (12-78); ALBUMIN 2.7 g/dL (3.4-5.0); ALKALINE PHOSPHATASE 99 U/L (46-116); ASPARTATE AMINOTRANSFERASE 10 U/L (15-37); BILIRUBIN,TOTAL 0.7 mg/dL (0.2-1.0); CALCIUM, SERUM 8.5 mg/dL (8.5-10.1); CARBON DIOXIDE 30 mmol/L (21-32); CHLORIDE 104 mmol/L (98-107); CREATININE 0.9 mg/dL (0.6-1.3); GLUCOSE 96 mg/dL (74-106); POTASSIUM 4.2 mmol/L (3.5-5.1); SODIUM SERUM 139 mmol/L (136-145); TOTAL PROTEIN, SERUM 6.2 g/dL (6.4-8.2); UREA NITROGEN, BLOOD 23 mg/dL (7-18)
[2021-11-19 07:50] LABS: THYROID STIMULATING HORMONE 2.018 uIU/mL (0.358-3.74)
[2021-11-19 08:00] VITALS: BP 98/59
[2021-11-19] MEDS: CYANOCOBALAMIN 500 MCG TABLET PO SCH (08:33)
[2021-11-19] MEDS: ALLOPURINOL 100 MG TABLET PO SCH (08:33)
[2021-11-19] MEDS: LISINOPRIL (20MG) 20 MG TABLET PO SCH (08:34)
[2021-11-19] MEDS: BENZTROPINE MESYLATE (1 MG) 1 MG TABLET PO SCH (08:34)
[2021-11-19] MEDS ORDERED: BENZTROPINE MESYLATE 1 MG PO SCH (09:00)
--- NOTE | 2021-11-19 09:00 | NUR ---
RN NOTE- PT IN BED, INTERACTIVE WHEN ENGAGED, PARANOIA P[RESENT, MED COMPLIANT, ISOLATIVE, WITHDRAWN
[2021-11-19] MEDS: OLANZAPINE 5 MG TABLET PO SCH ×2 (09:18→21:00)
[2021-11-19 15:09] VITALS: BP 147/76
[2021-11-19] MEDS: TAMSULOSIN 0.4 MG CAP.SR.24H PO SCH (17:13)
--- NOTE | 2021-11-19 19:15 | NUR ---
GPS RN NOTES PATIENT IN BED RESTING COMFORTABLY. A/OX2, NO S/SX OF ACUTE DISTRESS NOTED. PATIENT REMAINS ANXIOUS, PARANOID, DELUSIONAL, DISHEVELED, UNKEMPT. NO VERBALIZATION OF THOUGHTS AND FEELINGS. SAFETY PRECAUTIONS IN PLACE. WILL CONTINUE TO MONITOR Q15MIN ROUNDS FOR SAFETY AND BEHAVIOR.
[2021-11-19 19:38] VITALS: BP 141/58
[2021-11-19] MEDS: LORAZEPAM 0.5 MG TABLET PO PRN (19:40)
[2021-11-19] MEDS: SENNOSIDES 8.6 MG TABLET PO SCH (21:00)
[2021-11-19] MEDS: TEMAZEPAM 7.5 MG CAPSULE PO PRN (23:22)
[2021-11-20 08:00] VITALS: BP 123/67
[2021-11-20] MEDS: CYANOCOBALAMIN 500 MCG TABLET PO SCH (08:26)
[2021-11-20] MEDS: LISINOPRIL (20MG) 20 MG TABLET PO SCH (08:26)
[2021-11-20] MEDS: BENZTROPINE MESYLATE (1 MG) 1 MG TABLET PO SCH (08:26)
[2021-11-20] MEDS: ALLOPURINOL 100 MG TABLET PO SCH (08:27)
[2021-11-20] MEDS: OLANZAPINE 5 MG TABLET PO SCH ×2 (10:01→20:59)
--- NOTE | 2021-11-20 10:34 | NUR ---
ELIAZAR Note: SW met with pt to discuss treatment plan and discharge plan. He stated that he does not want to go back to his facility and wants a different facility.
--- NOTE | 2021-11-20 10:35 | NUR ---
ELIAZAR Family Contact: ELIAZAR spoke with pt's sister Ev ([phone]) to gather collateral and discuss treatment/discharge plan. She reported that she is the DPOA and will bring the documents when she visits pt. SW reported that pt does not want to go back to his assisted living and wants a different placement. SW gave options and she was open to SNF. She reported she would prefer pt to go back to assisted living. ELIAZAR stated she will check with pt end of this week to see what he would prefer.
[2021-11-20 16:00] VITALS: BP 119/70
[2021-11-20] MEDS: TAMSULOSIN 0.4 MG CAP.SR.24H PO SCH (17:22)
[2021-11-20 20:00] VITALS: BP 141/60
--- NOTE | 2021-11-20 20:23 | NUR ---
RECEIVED PATIENT IN ROOM SITTING IN THE BED ALERT, ORIENTED X 2-3 DENIES ANY PAIN OR DISCOMFORT AT THIS TIME BREATHING EVEN UNLABORED VITAL SIGN STABLE CONFUSE AT TIME ABLE TO RE- DIRECT COMPLY WITH MEDICATIONS. CALL LIGHT WITHIN EASY REACHED. WILL CONTINUES TO MAKE ROUND EVERY 15 MINS FOR PATIENT SAFETY AND FALL.
[2021-11-20] MEDS: LORAZEPAM 0.5 MG TABLET PO PRN (20:58)
[2021-11-20] MEDS: SENNOSIDES 8.6 MG TABLET PO SCH (20:59)
[2021-11-21 08:00] VITALS: BP 128/68
--- NOTE | 2021-11-21 08:49 | NUR ---
SNF Referral: ELIAAZR sent clinicals to medina Leal ([phone]) from [facility] for placement. SW sent H & P, progress notes, and medication list.
[2021-11-21] MEDS: OLANZAPINE 5 MG TABLET PO SCH ×2 (09:34→21:06)
[2021-11-21] MEDS: CYANOCOBALAMIN 500 MCG TABLET PO SCH (09:34)
[2021-11-21] MEDS: LISINOPRIL (20MG) 20 MG TABLET PO SCH (09:34)
[2021-11-21] MEDS: BENZTROPINE MESYLATE (1 MG) 1 MG TABLET PO SCH (09:34)
[2021-11-21] MEDS: ALLOPURINOL 100 MG TABLET PO SCH (09:34)
[2021-11-21 16:00] VITALS: BP 147/73
--- NOTE | 2021-11-21 17:12 | NUR ---
RN-NOTES PATIENT IN DAY ROOM WATCHING TV , A/O X2 GUARDED,CALM NO ACUTE DISTRESS NOTED. COMPLIANT WITH MEDICATIONS. PATIENT AMBULATORY STEADY GAIT.WILL CONT. MONITORING FOR SAFETY AND BEHAVIOR. ALL NEEDS ATTENDED AND ANTICIPATED.WILL ENDORSE TO INCOMING SHIFT FOR CONTINUITY OF CARE.
[2021-11-21] MEDS: TAMSULOSIN 0.4 MG CAP.SR.24H PO SCH (17:17)
[2021-11-21 20:00] VITALS: BP 135/72
--- NOTE | 2021-11-21 20:04 | NUR ---
RN NOTES: PATIENT IN BED RESTING , NO S/SX OF ACUTE DISTRESS NOTED. PATIENT REMAINS ANXIOUS, PARANOID, DELUSIONAL, DISHEVELED, UNKEMPT.ENCOURAGED PT. TO VERBALIZATION OF THOUGHTS AND FEELINGS. SAFETY PRECAUTIONS IN PLACE. WILL CONTINUE TO MONITOR Q15MIN ROUNDS FOR SAFETY AND BEHAVIOR.
[2021-11-21] MEDS: SENNOSIDES 8.6 MG TABLET PO SCH (21:06)
[2021-11-21] MEDS: TEMAZEPAM 7.5 MG CAPSULE PO PRN (22:38)
--- NOTE | 2021-11-21 22:39 | NUR ---
RN NOTES: INSOMNIA: PT. C/O UNABLE TO SLEEP , PRN RESTORIL 15 MG PO GIVEN PER PT. REQUEST, WILL CONTINUE TO MONITOR.
[2021-11-22 08:00] VITALS: BP 141/75
[2021-11-22] MEDS: BENZTROPINE MESYLATE (1 MG) 1 MG TABLET PO SCH (08:14)
[2021-11-22] MEDS: CYANOCOBALAMIN 500 MCG TABLET PO SCH (08:15)
[2021-11-22] MEDS: ALLOPURINOL 100 MG TABLET PO SCH (08:15)
[2021-11-22] MEDS: LISINOPRIL (20MG) 20 MG TABLET PO SCH (08:16)
[2021-11-22] MEDS ORDERED: OLANZAPINE 5 MG TABLET PO SCH (09:00)
[2021-11-22] MEDS ORDERED: OLANZAPINE 2.5 MG TABLET PO SCH ×2 (09:00→22:00)
--- NOTE | 2021-11-22 10:54 | NUR ---
SNF Contact: SW spoke with Elvis ([phone]) from [facility] who stated that pt is accepted.
--- NOTE | 2021-11-22 10:55 | NUR ---
Court Hearing: Patient's court hearing for 0280 was today and it was upheld for GD.
--- NOTE | 2021-11-22 10:55 | NUR ---
Court Notification: SW contacted pt's sister Ev ([phone]) and left a voicemail of pt's 1113 hearing today.
[2021-11-22 16:00] VITALS: BP 98/64
[2021-11-22] MEDS: TAMSULOSIN 0.4 MG CAP.SR.24H PO SCH (17:17)
--- NOTE | 2021-11-22 17:40 | NUR ---
RN-NOTES PATIENT IN DAY ROOM WATCHING TV , A/O X2 ,CALM NO ACUTE DISTRESS NOTED. COMPLIANT WITH MEDICATIONS. PATIENT AMBULATORY STEADY GAIT.WILL CONT. MONITORING FOR SAFETY AND BEHAVIOR. ALL NEEDS ATTENDED AND ANTICIPATED.WILL ENDORSE TO INCOMING SHIFT FOR CONTINUITY OF CARE.
--- NOTE | 2021-11-22 19:39 | NUR ---
RN NOTES: PATIENT IN BED RESTING , NO S/SX OF ACUTE DISTRESS NOTED. PATIENT REMAINS ANXIOUS, PARANOID, DELUSIONAL, DISHEVELED, UNKEMPT. FAMILY AT BED SIDE ,PT. TALKING TO THE FAMILY ,ENCOURAGED PT. TO VERBALIZATION OF THOUGHTS AND FEELINGS. SAFETY PRECAUTIONS IN PLACE. WILL CONTINUE TO MONITOR Q15MIN ROUNDS FOR SAFETY AND BEHAVIOR.
[2021-11-22 20:09] VITALS: BP 130/59
[2021-11-22] MEDS: SENNOSIDES 8.6 MG TABLET PO SCH (21:02)
[2021-11-23 08:00] VITALS: BP 100/63
[2021-11-23] MEDS: LISINOPRIL (20MG) 20 MG TABLET PO SCH (09:00)
[2021-11-23] MEDS: CYANOCOBALAMIN 500 MCG TABLET PO SCH (09:09)
[2021-11-23] MEDS: BENZTROPINE MESYLATE (1 MG) 1 MG TABLET PO SCH (09:09)
[2021-11-23] MEDS: ALLOPURINOL 100 MG TABLET PO SCH (09:13)
[2021-11-23] MEDS: OLANZAPINE 5 MG TABLET PO SCH (10:07)
[2021-11-23 16:00] VITALS: BP 130/51
[2021-11-23] MEDS: TAMSULOSIN 0.4 MG CAP.SR.24H PO SCH (17:09)
--- NOTE | 2021-11-23 18:15 | NUR ---
RN-NOTES PATIENT IN DAY ROOM WATCHING TV , A/O X2 ,CALM NO ACUTE DISTRESS NOTED. COMPLIANT WITH MEDICATIONS. PATIENT AMBULATORY STEADY GAIT.ABLE TO MAKE NEEDS KNOWN TO THE STAFF.WILL CONT. MONITORING FOR SAFETY AND BEHAVIOR. ALL NEEDS ATTENDED AND ANTICIPATED.WILL ENDORSE TO INCOMING SHIFT FOR CONTINUITY OF CARE.
--- NOTE | 2021-11-23 19:55 | NUR ---
RN NOTES: PATIENT IN BED RESTING , NO S/SX OF ACUTE DISTRESS NOTED. EASILY AGITATED, PARANOID, DISORGNIZED, DISHEVELED, UNKEMPT ,ENCOURAGED PT. TO VERBALIZATION OF THOUGHTS AND FEELINGS. SAFETY PRECAUTIONS IN PLACE. WILL CONTINUE TO MONITOR Q15MIN ROUNDS FOR SAFETY AND BEHAVIOR.
[2021-11-23 20:08] VITALS: BP 130/52
[2021-11-23] MEDS: SENNOSIDES 8.6 MG TABLET PO SCH (21:06)
[2021-11-23] MEDS: OLANZAPINE 2.5 MG TABLET PO SCH (21:07)
[2021-11-24 08:00] VITALS: BP 120/63
--- NOTE | 2021-11-24 08:00 | NUR ---
GPS/RN RECEIVED PT IN THE BED RESTING. BREATHING IS EVEN AND NONLABORED. EASILY AROUSED, PT IS A/O X2 GUARDED, CALM NO ACUTE DISTRESS NOTED. COMPLIANT WITH DAILY MEDICATIONS. AMBULATORY STEADY GAIT.ALL NEEDS ATTENDED AND ANTICIPATED WILL CONTINUE MONITORING Q15MIN FOR SAFETY AND BEHAVIOR.
[2021-11-24] MEDS: OLANZAPINE 5 MG TABLET PO SCH (08:47)
[2021-11-24] MEDS: ALLOPURINOL 100 MG TABLET PO SCH (08:47)
[2021-11-24] MEDS: ESCITALOPRAM OXALATE (10 MG) 10 MG TABLET PO SCH (08:47)
[2021-11-24] MEDS: CYANOCOBALAMIN 500 MCG TABLET PO SCH (08:47)
[2021-11-24] MEDS: LISINOPRIL (20MG) 20 MG TABLET PO SCH (08:48)
[2021-11-24] MEDS: BENZTROPINE MESYLATE (1 MG) 1 MG TABLET PO SCH (08:48)
[2021-11-24 16:00] VITALS: BP 139/66
[2021-11-24] MEDS: TAMSULOSIN 0.4 MG CAP.SR.24H PO SCH (17:55)
[2021-11-24 19:45] VITALS: BP 154/74
[2021-11-24] MEDS: SENNOSIDES 8.6 MG TABLET PO SCH (21:16)
[2021-11-24] MEDS: LORAZEPAM 0.5 MG TABLET PO PRN (21:16)
[2021-11-24] MEDS: OLANZAPINE 2.5 MG TABLET PO SCH (21:17)
[2021-11-25] MEDS: TEMAZEPAM 7.5 MG CAPSULE PO PRN ×2 (01:53→22:12)
--- NOTE | 2021-11-25 06:42 | NUR ---
CALL FAMILY SAMIRA MALDONADO X 3 NO RESPONSE AND LEFT A VOICE MESSAGE Addendum: 11/25/21 at 0647 by INO NEWELL RN MARTINEZ PATIENT ERROR
[2021-11-25 08:00] VITALS: BP 106/52
[2021-11-25] MEDS: LISINOPRIL (20MG) 20 MG TABLET PO SCH (09:00)
[2021-11-25] MEDS: ALLOPURINOL 100 MG TABLET PO SCH (09:03)
[2021-11-25] MEDS: OLANZAPINE 5 MG TABLET PO SCH (09:03)
[2021-11-25] MEDS: BENZTROPINE MESYLATE (1 MG) 1 MG TABLET PO SCH (09:03)
[2021-11-25] MEDS: ESCITALOPRAM OXALATE (10 MG) 10 MG TABLET PO SCH (09:03)
[2021-11-25] MEDS: CYANOCOBALAMIN 500 MCG TABLET PO SCH (09:05)
--- NOTE | 2021-11-25 14:55 | NUR ---
Individual Counseling: SW met with pt. for individual counseling. The pt. is A&O X 3 , unkempt. Pt. stated his mood is "okay". Pt. discussed he does not want to return to previous facility he was residing at. SW provided active listening and notified pt. that other SW is finding alternate placement. Pt. expressed understanding and is agreeable to plan.
[2021-11-25 16:00] VITALS: BP 125/56
[2021-11-25] MEDS: TAMSULOSIN 0.4 MG CAP.SR.24H PO SCH (17:32)
--- NOTE | 2021-11-25 19:30 | NUR ---
GPS RN OPENING NOTES: RECEIVED PATIENT AMBULATING WITH STEADY GAIT IN HALLWAY, A/O X2. FLAT AFFECT, DISHEVELED, DISORGANIZED, COOPERATIVE. DENIES PAIN AT THIS TIME. NO S/S OF DISTRESS. RESPIRATION EVEN AND UNLABORED WITH EQUAL RISE AND FALL OF THE CHEST, ON ROOM AIR. OFFERED FLUID AND SNACKS TOLERATED. WILL CONTINUE TO MONITOR Q15 FOR MOOD, SAFETY AND BEHAVIOR.
[2021-11-25 19:34] VITALS: BP 118/61
[2021-11-25] MEDS: SENNOSIDES 8.6 MG TABLET PO SCH (21:23)
[2021-11-25] MEDS: OLANZAPINE 2.5 MG TABLET PO SCH (21:23)
--- NOTE | 2021-11-25 22:15 | NUR ---
GPS RN NOTES: PATIENT REQUESTED FOR SLEEP MEDICATION. RESTORIL 7.5MG 2CAPS GIVEN PO PRN ORDERED AT 2212. WILL CONTINUE TO MONITOR.
[2021-11-26 08:00] VITALS: BP 105/59
[2021-11-26] MEDS: BENZTROPINE MESYLATE (1 MG) 1 MG TABLET PO SCH (09:00)
[2021-11-26] MEDS: LISINOPRIL (20MG) 20 MG TABLET PO SCH (09:00)
[2021-11-26] MEDS: OLANZAPINE 5 MG TABLET PO SCH (09:00)
[2021-11-26] MEDS: ESCITALOPRAM OXALATE (10 MG) 10 MG TABLET PO SCH (09:01)
[2021-11-26] MEDS: ALLOPURINOL 100 MG TABLET PO SCH (09:02)
[2021-11-26] MEDS: CYANOCOBALAMIN 500 MCG TABLET PO SCH (09:02)
--- NOTE | 2021-11-26 09:06 | NUR ---
RN-CO:RECEIVED PT IN THE BED RESTING. BREATHING IS EVEN AND NONLABORED. EASILY AROUSED, PT IS A/O X2 GUARDED, CALM NO ACUTE DISTRESS NOTED. COMPLIANT WITH DAILY MEDICATIONS. AMBULATORY STEADY GAIT.ALL NEEDS ATTENDED AND ANTICIPATED WILL CONTINUE MONITORING Q15MIN FOR SAFETY AND BEHAVIOR.
--- NOTE | 2021-11-26 09:15 | NUR ---
Assisted Living Contact: ELIAZAR spoke with Radhacandis from [facility] ([phone]) who stated pt is welcomed back 11/29, Thursday. They requested clinicals. ELIAZAR faxed clinicals ([phone]).
[2021-11-26 16:01] VITALS: BP 135/58
[2021-11-26] MEDS: TAMSULOSIN 0.4 MG CAP.SR.24H PO SCH (17:07)
[2021-11-26 20:14] VITALS: BP 126/69
[2021-11-26] MEDS: SENNOSIDES 8.6 MG TABLET PO SCH (21:50)
[2021-11-26] MEDS: OLANZAPINE 2.5 MG TABLET PO SCH (21:50)
[2021-11-27 08:00] VITALS: BP 148/74
[2021-11-27] MEDS: ALLOPURINOL 100 MG TABLET PO SCH (08:54)
[2021-11-27] MEDS: CYANOCOBALAMIN 500 MCG TABLET PO SCH (08:55)
[2021-11-27] MEDS: ESCITALOPRAM OXALATE (10 MG) 10 MG TABLET PO SCH (08:55)
[2021-11-27] MEDS: LISINOPRIL (20MG) 20 MG TABLET PO SCH (08:55)
[2021-11-27] MEDS: BENZTROPINE MESYLATE (1 MG) 1 MG TABLET PO SCH (08:55)
[2021-11-27] MEDS: OLANZAPINE 5 MG TABLET PO SCH (08:55)
[2021-11-27] MEDS: LORAZEPAM 0.5 MG TABLET PO PRN (12:31)
--- NOTE | 2021-11-27 12:35 | NUR ---
given ativan to help him relax.
[2021-11-27 16:00] VITALS: BP 127/55
[2021-11-27] MEDS: TAMSULOSIN 0.4 MG CAP.SR.24H PO SCH (18:00)
[2021-11-27 19:53] VITALS: BP 121/54
[2021-11-27 20:00] VITALS: BP 121/54
[2021-11-27] MEDS: OLANZAPINE 2.5 MG TABLET PO SCH (21:21)
[2021-11-27] MEDS: SENNOSIDES 8.6 MG TABLET PO SCH (21:22)
[2021-11-27] MEDS: TEMAZEPAM 7.5 MG CAPSULE PO PRN (21:22)
[2021-11-28] MEDS: LORAZEPAM 0.5 MG TABLET PO PRN (00:47)
--- NOTE | 2021-11-28 05:01 | NUR ---
alert and orientated X$ makes his needs known lays in his bed and noted him reading from a paper back book ambulates the hallway steady on his legs medicated with Restiril for sleep at 2200 woke up at 0030 asking for Ativan to help him sleep longer Ativan given and effective
[2021-11-28 08:00] VITALS: BP 130/63
[2021-11-28] MEDS: OLANZAPINE 5 MG TABLET PO SCH (08:26)
[2021-11-28] MEDS: ESCITALOPRAM OXALATE (10 MG) 10 MG TABLET PO SCH (08:26)
[2021-11-28] MEDS: BENZTROPINE MESYLATE (1 MG) 1 MG TABLET PO SCH (08:27)
[2021-11-28] MEDS: CYANOCOBALAMIN 500 MCG TABLET PO SCH (08:27)
[2021-11-28] MEDS: ALLOPURINOL 100 MG TABLET PO SCH (08:27)
[2021-11-28] MEDS: LISINOPRIL (20MG) 20 MG TABLET PO SCH (08:27)
--- NOTE | 2021-11-28 11:15 | NUR ---
RN Notes: Received pt. asleep in bed, breathing is tato and unlabored. ate 100% for breakfast, compliant on meds. pt. is confused and disoriented. Encouraged to verbalize feelings and motivated to attend group activity. Needs attended and will continue to monitor for safety.
[2021-11-28 14:00] VITALS: BP 125/60
[2021-11-28 16:00] VITALS: BP 125/60
[2021-11-28] MEDS: TAMSULOSIN 0.4 MG CAP.SR.24H PO SCH (17:16)
[2021-11-28 20:00] VITALS: BP 122/69
[2021-11-28] MEDS: SENNOSIDES 8.6 MG TABLET PO SCH (21:05)
[2021-11-28] MEDS: OLANZAPINE 2.5 MG TABLET PO SCH (21:05)
[2021-11-28] MEDS: TEMAZEPAM 7.5 MG CAPSULE PO PRN (22:55)
--- NOTE | 2021-11-28 22:56 | NUR ---
RN NOTES: INSOMNIA: PT. C/O UNABLE TO SLEEP , PRN RESTORIL 15 MG PO GIVEN PER PT. REQUEST, WILL CONTINUE TO MONITOR.
[2021-11-29 08:00] VITALS: BP 111/66
--- NOTE | 2021-11-29 08:06 | NUR ---
SW Discharge Note: Patient will be discharged back to [facility] located at [id number] [facility]. [facility] [address]; [phone]. 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 Patient is alert and oriented x2. Patient happy to be going back home. Patient denies suicidal or homicidal ideation. Patient denies visual/auditory hallucinations. Patient will follow up with (Public Relations Coordinator) Dr. Myers located at [id number] [address]; ([phone]) and (Psychiatrist) Dr. Rhodes at [address] [facility], [address], [place] [address]; ([phone]) who will monitor his medications at the facility. Patient presents with euthymic mood and congruent affect.
[2021-11-29 09:00] VITALS: BP 111/66
[2021-11-29] MEDS: LISINOPRIL (20MG) 20 MG TABLET PO SCH (09:00)
[2021-11-29] MEDS: ESCITALOPRAM OXALATE (10 MG) 10 MG TABLET PO SCH (09:39)
[2021-11-29] MEDS: CYANOCOBALAMIN 500 MCG TABLET PO SCH (09:39)
[2021-11-29] MEDS: ALLOPURINOL 100 MG TABLET PO SCH (09:39)
[2021-11-29] MEDS: BENZTROPINE MESYLATE (1 MG) 1 MG TABLET PO SCH (09:39)
[2021-11-29] MEDS: OLANZAPINE 5 MG TABLET PO SCH (09:39)
--- NOTE | 2021-11-29 11:45 | NUR ---
GPS/RN PT DISCHARGED TO [facility]. NO SI /HI REPORTED AT THE TIME OF D/C. A/O X2. PT REFUSED TO SIGN D/C FORMS. PRESCRIPTIONS AND EXIT CARE INSTRUCTIONS PROVIDED. AMBULATORY. PROPERTY RETURNED. PT LEFT HOSPITAL WITH HIS SISTER ALINE Wong VIA PRIVATE CAR.
== END 2021-11-29 11:45 | DRG 885 ==
LOC: ER 22:33 → GPS 11-18 03:42
PROVIDERS: ADMIT Psychiatry & Neurology Psychiatry
DX: F25.9 Schizoaffective disorder, unspecified (principal); E44.0 Moderate protein-calorie malnutrition; F29 Unspecified psychosis not due to a substance or known physiological condition; F03.90 Unspecified dementia, unspecified severity, without behavioral disturbance, psychotic disturbance, mood disturbance, and anxiety; E78.5 Hyperlipidemia, unspecified; Z66 Do not resuscitate; E88.09 Other disorders of plasma-protein metabolism, not elsewhere classified; E78.00 Pure hypercholesterolemia, unspecified; E11.40 Type 2 diabetes mellitus with diabetic neuropathy, unspecified; J44.9 Chronic obstructive pulmonary disease, unspecified; Z86.12 Personal history of poliomyelitis; I10 Essential (primary) hypertension; R27.0 Ataxia, unspecified; Z79.899 Other long term (current) drug therapy; F15.10 Other stimulant abuse, uncomplicated; E86.0 Dehydration; D64.9 Anemia, unspecified; R79.89 Other specified abnormal findings of blood chemistry; Z72.0 Tobacco use; Z91.51 Personal history of suicidal behavior
CPT/HCPCS: 36415; 80048-TC; 80053-TC; 80061-TC; 80076-TC; 82962-TC; 84425; 84443-TC; 85025-TC; 87081-TC; C9803; G0480; J3490

== ENCOUNTER 2021-12-23 10:04 | Emergency (ER) | payer MEDICARE, OTHER ==
[~2021-12-23] VITALS: Ht 175.3 cm; Wt 86.2 kg
--- NOTE | 2021-12-23 10:12 | NUR ---
[id number], lac on the forehead R side area s/p tripped and fall, no loc admits on drinking alcohol, found crack pipe with him. awaiting md fung.
--- NOTE | 2021-12-23 10:16 | NUR ---
security at bedside for wanding.
[2021-12-23 10:34] LABS: BASOPHILS % (AUTO) 0.5 % (0.0-2.0); EOSINOPHILS % (AUTO) 0.6 % (0.0-6.0); HEMATOCRIT 32 % (39-51); HEMOGLOBIN 11.1 g/dL (13.5-17.5); LYMPHOCYTES % (AUTO) 27.6 % (20.0-44.0); MEAN CORPUSCULAR HGB CONC 35 g/dl (31.0-36.0); MEAN CORPUSCULAR VOLUME 95 fL (80-96); MONOCYTES # (AUTO) 0.7 K/uL (0.1-1.30); MONOCYTES % (AUTO) 9.4 % (2.0-12.0); NEUTROPHILS # (AUTO) 4.5 K/uL (1.8-8.9); NEUTROPHILS % (AUTO) 61.9 % (43.0-81.0); PLATELET COUNT (AUTO) 223 K/uL (150-450); RED BLOOD CELL COUNT(AUTO) 3.37 MIL/uL (4.5-6.0); WHITE BLOOD COUNT (AUTO) 7.3 K/uL (4.3-11.0)
[2021-12-23 10:59] LABS: ALANINE AMINOTRANSFERASE 11 U/L (12-78); ALBUMIN 3.1 g/dL (3.4-5.0); ALKALINE PHOSPHATASE 115 U/L (46-116); ASPARTATE AMINOTRANSFERASE 9 U/L (15-37); BILIRUBIN,TOTAL 0.5 mg/dL (0.2-1.0); CALCIUM, SERUM 8.3 mg/dL (8.5-10.1); CARBON DIOXIDE 29 mmol/L (21-32); CHLORIDE 100 mmol/L (98-107); CREATININE 1.2 mg/dL (0.6-1.3); GLUCOSE 104 mg/dL (74-106); POTASSIUM 4.2 mmol/L (3.5-5.1); SODIUM SERUM 134 mmol/L (136-145); TOTAL PROTEIN, SERUM 6.9 g/dL (6.4-8.2); UREA NITROGEN, BLOOD 17 mg/dL (7-18)
[2021-12-23 11:01] LABS: ACETAMINOPHEN 0 ug/ml (10-30); ALCOHOL, BLOOD < 3 mg/dL (0-0)
--- NOTE | 2021-12-23 11:26 | NUR ---
CALLED [facility] AND SET UP S TRANSPORTATION ETA [phone]
--- NOTE | 2021-12-23 12:20 | NUR ---
Patient discharged to home in stable condition. Written and verbal after care instructions given. Patient verbalizes understanding of instruction.
[2021-12-23 13:12] VITALS: BP 99/58
== END 2021-12-23 12:20 ==
LOC: ER 10:08
DX: S01.81XA Laceration without foreign body of other part of head, initial encounter (principal); I10 Essential (primary) hypertension; E11.9 Type 2 diabetes mellitus without complications; J44.9 Chronic obstructive pulmonary disease, unspecified; F20.9 Schizophrenia, unspecified; E78.00 Pure hypercholesterolemia, unspecified; Z86.69 Personal history of other diseases of the nervous system and sense organs; Z86.12 Personal history of poliomyelitis; Z79.899 Other long term (current) drug therapy; W18.30XA Fall on same level, unspecified, initial encounter; Y93.89 Activity, other specified; Y92.480 Sidewalk as the place of occurrence of the external cause; Y99.8 Other external cause status
CPT/HCPCS: 12013; 36415; 70450; 80048; 80076; 80143; 80320; 85025; 99284; A6403; G0480

== ENCOUNTER 2022-05-14 01:38 | Emergency (ER) | payer MEDICARE, OTHER ==
[~2022-05-14] VITALS: Ht 182.9 cm; Wt 81.6 kg
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
--- NOTE | 2022-05-14 02:29 | NUR ---
PHLEB AT BEDSIDE
--- NOTE | 2022-05-14 02:29 | NUR ---
URINE SENT TO LAB
--- NOTE | 2022-05-14 02:36 | NUR ---
YVETTE SENT TO LAB
[2022-05-14 03:14] LABS: BASOPHILS % (AUTO) 0.2 % (0.0-2.0); EOSINOPHILS % (AUTO) 1.1 % (0.0-6.0); HEMATOCRIT 36 % (39-51); HEMOGLOBIN 11.9 g/dL (13.5-17.5); LYMPHOCYTES # (AUTO) 1.7 K/uL (0.8-4.8); LYMPHOCYTES % (AUTO) 17.2 % (20.0-44.0); MEAN CORPUSCULAR HGB CONC 33 g/dl (31.0-36.0); MEAN CORPUSCULAR VOLUME 96 fL (80-96); MONOCYTES # (AUTO) 0.7 K/uL (0.1-1.30); MONOCYTES % (AUTO) 7.7 % (2.0-12.0); NEUTROPHILS # (AUTO) 7.1 K/uL (1.8-8.9); NEUTROPHILS % (AUTO) 73.8 % (43.0-81.0); PLATELET COUNT (AUTO) 239 K/uL (150-450); RED BLOOD CELL COUNT(AUTO) 3.74 MIL/uL (4.5-6.0); WHITE BLOOD COUNT (AUTO) 9.6 K/uL (4.3-11.0)
[2022-05-14 03:24] LABS: BILIRUBIN,URINE NEGATIVE (NEGATIVE); COLOR,URINE YELLOW (YELLOW); LEUKOCYTE ESTERASE ,URINE NEGATIVE (NEGATIVE); NITRITE, URINE NEGATIVE (NEGATIVE); PROTEIN,URINE NEGATIVE (NEGATIVE); UGLUCOSE NEGATIVE (NEGATIVE); UROBILINOGEN,URINE 0.2 EU/dL (0.2)
[2022-05-14 03:41] LABS: ALANINE AMINOTRANSFERASE 11 U/L (12-78); ALBUMIN 2.9 g/dL (3.4-5.0); ALCOHOL, BLOOD < 3 mg/dL (0-0); ALKALINE PHOSPHATASE 111 U/L (46-116); ASPARTATE AMINOTRANSFERASE 9 U/L (15-37); BILIRUBIN,DIRECT 0.1 mg/dL (0.0-0.2); BILIRUBIN,TOTAL 0.5 mg/dL (0.2-1.0); CALCIUM, SERUM 8.5 mg/dL (8.5-10.1); CARBON DIOXIDE 28 mmol/L (21-32); CHLORIDE 99 mmol/L (98-107); CREATININE 1.1 mg/dL (0.6-1.3); GLUCOSE 121 mg/dL (74-106); POTASSIUM 4.1 mmol/L (3.5-5.1); SODIUM SERUM 135 mmol/L (136-145); UREA NITROGEN, BLOOD 18 mg/dL (7-18)
[2022-05-14 03:42] LABS: ACETAMINOPHEN 0 ug/ml (10-30)
--- NOTE | 2022-05-14 08:11 | NUR ---
CUSTOMER SERVICE CLERK/MED RECON UNABLE TO UPDATE HOME MEDICATION INFORMATION AT THIS TIME. [facility], PROVIDED FAX#. WILL F/U LATER. Addendum: 05/14/22 at 0925 by [facility] [phone]
[2022-05-14] MEDS ORDERED: CLON2TAB11 PO (09:53)
--- NOTE | 2022-05-14 12:08 | NUR ---
PT WILL GO TO [facility] FOR BED ASSIGNMENT.
[2022-05-14 15:16] VITALS: BP 118/59
--- NOTE | 2022-05-14 15:58 | NUR ---
PT GOING TO [facility] FIRST AFTER BED WILL BE [facility] PLEASE [phone] BYERS.
--- NOTE | 2022-05-14 16:07 | NUR ---
[facility] CALLED FOR TRANSPORT ETA 60 MINS PER JANNETTE.
--- NOTE | 2022-05-14 17:20 | NUR ---
[facility]t at bedside to pickup pt. endorsement given. pt stable for transfer.
== END 2022-05-14 17:25 ==
LOC: ER 01:40
DX: F19.10 Other psychoactive substance abuse, uncomplicated (principal); F03.90 Unspecified dementia, unspecified severity, without behavioral disturbance, psychotic disturbance, mood disturbance, and anxiety; Z86.12 Personal history of poliomyelitis; E11.40 Type 2 diabetes mellitus with diabetic neuropathy, unspecified; J44.9 Chronic obstructive pulmonary disease, unspecified; F20.9 Schizophrenia, unspecified; R27.0 Ataxia, unspecified; F17.200 Nicotine dependence, unspecified, uncomplicated; I10 Essential (primary) hypertension; E78.00 Pure hypercholesterolemia, unspecified; Z79.899 Other long term (current) drug therapy; Z20.822 Contact with and (suspected) exposure to COVID-19
CPT/HCPCS: 36415; 80048-TC; 80076-TC; 85025-TC; C9803; G0480